=== PATIENT | male | born 1965 | race Hispanic/Latino ===

== ENCOUNTER 2023-02-04 14:39 | Emergency (ER) | payer OTHER, SELFPAY ==
[2023-02-04 14:50] VITALS: BP 154/79; PULSE 91; RESP 18; TEMP 36.5; O2SAT 99
--- NOTE | 2023-02-04 14:54 | ED.LOWEXIN ---
HPI - Extremity Injury (Lower) General Chief Complaint: Extremity Injury, Lower Stated Complaint: toe irritation Time Seen by Provider: 02/04/23 14:54 Source: patient Mode of arrival: ambulatory Limitations: no limitations History of Present Illness HPI Narrative: 57 y/o male with hx DM and neuropathy presented for c/o wounds to the right 4th and 5th toes. Endorses some pain to the wound, foot swelling, and odor. States the wounds have been worsening for about 3 days. Now draining white/cloudy drainage. Endorses he has decreased sensation at baseline but can feel swelling and some pain when walking. Patient has been changing dressings to the site routinely. Wearing post op shoe. Denies n/v/f/c. Scheduled with pcp tomorrow. Follows with quality improvement consultant, last seen in November. Reports BS readings 150s. Related Data Home Medications Medication Instructions Recorded Confirmed atorvastatin 10 mg tablet (Lipitor) 10 mg PO DAILY 04/03/21 10/22/21 dapagliflozin propanediol 5 mg 5 mg PO DAILY 04/03/21 10/22/21 tablet (Farxiga) insulin lispro protamine-lispro 24 unit subcut BID 04/03/21 10/22/21 100 unit/mL (75-25) subcutaneous pen (Humalog Mix 75-25 KwikPen) lisinopril 10 mg tablet 10 mg PO DAILY 04/03/21 10/22/21 metformin 1,000 mg tablet 1,000 mg PO BID 04/03/21 10/22/21 semaglutide 1 mg/dose (4 mg/3 mL) 1 mg subcut WEEKLY 04/03/21 10/22/21 subcutaneous pen injector (Ozempic) Allergies Allergy/AdvReac Type Severity Reaction Status Date / Time liraglutide Allergy Unknown unk Verified 10/08/21 15:50 No Known Allergies Allergy Unverified 10/08/21 15:50 Review of Systems Review of Systems: CONSTITUTIONAL: Denies body aches, fever, chills, or sweats. EYES: Denies visual changes, redness, or discharge. ENT: Denies rhinorrhea, congestion CARDIOVASCULAR: Denies chest pain, palpitations, or edema. RESPIRATORY: Denies cough or dyspnea. GASTROINTESTINAL: Denies abdominal pain, nausea, vomiting, or diarrhea. SKIN: reports wounds to right toes MUSCULOSKELETAL: Denies back pain, joint pain, or myalgia. NEUROLOGIC: Denies headache, numbness, tingling, or weakness. [facility] Past Medical History Medical History Essential (primary) hypertension detention (current) use of insulin Type 2 diabetes mellitus with hyperglycemia Family History Family History Father Family history of malignant neoplasm Mother Family history of diabetes mellitus in first degree relative Sibling Family history of diabetes mellitus in first degree relative Other Cerebrovascular accident Family history of arthritis Social History Social History Smoking status: Never smoker Second hand tobacco smoke exposure: No Alcohol intake: current Substance use: never Substance use type: does not use Living arrangements: with family Occupation/Education: occupation Gender identity (if verbalized by the patient): Male Sexual Orientation (if Verbalized by the Patient): Straight or Heterosexual Comments At time of signature, I have reviewed and agree with nursing past medical, surgical, social and family history unless otherwise noted. Please see nursing chart for further information. There is no relevant family history pertinent to the presenting complaint Exam Narrative: GENERAL: Well-appearing HEAD: Normocephalic EYES: conjunctivae clear, and EOMI. ENT: Mucous membranes moist. Oropharynx without edema, erythema or lesions. NECK: Supple. No lymphadenopathy CHEST: Clear to auscultation. HEART: Regular rate and rhythm. SKIN: Warm, dry. Right foot with large amount of swelling extending from toes to ankle; erythema extending from 3rd-5th toes to mid foot. Foul odor. Open wound to lateral 4th toe approx [id number] and 0.5cm deep, small amount purulent drainage, swelling a
== END 2023-02-04 15:29 | disposition short-term general hospital (02) ==
PROVIDERS: Emergency Provider Nurse Practitioner Family; PCP Family Medicine
DX: E11.621 Type 2 diabetes mellitus with foot ulcer (principal); L97.519 Non-pressure chronic ulcer of other part of right foot with unspecified severity; I10 Essential (primary) hypertension; Z79.4 Long term (current) use of insulin
CPT/HCPCS: 99212; G0463